=== PATIENT | female | born 1960 | race Caucasian/White ===

== ENCOUNTER 2017-06-15 15:58 | Emergency (ER) | payer SELFPAY ==
[~2017-06-15] VITALS: Ht 152.4 cm; Wt 77.8 kg
[2017-06-15 17:32] VITALS: BP 120/60
== END 2017-06-15 17:32 | disposition home or self-care (01) ==
LOC: ED 15:58
DX: K92.2 Gastrointestinal hemorrhage, unspecified (principal)